=== PATIENT | female | born 1965 | race Two or more races ===

== ENCOUNTER 2019-04-08 13:18 | Emergency (ER) | payer BC ==
[~2019-04-08] VITALS: Ht 167.6 cm; Wt 81.6 kg
[2019-04-08] MEDS ORDERED: HYDROmorphone HCL 2 MG/ML VL IV ONE (14:45)
[2019-04-08] MEDS ORDERED: ONDANSETRON HCL 4 MG/2 ML VIAL IV ONE (14:45)
[2019-04-08 18:00] VITALS: BP 128/78
== END 2019-04-08 18:31 | disposition home or self-care (01) ==
LOC: ER 13:18
DX: S39.012A Strain of muscle, fascia and tendon of lower back, initial encounter (principal); X58.XXXA Exposure to other specified factors, initial encounter; Y93.89 Activity, other specified; Y92.89 Other specified places as the place of occurrence of the external cause; Y99.8 Other external cause status
CPT/HCPCS: 72131; 72192; 96374; 96375; 99284; J1170; J2405